=== PATIENT | male | born 1990 | race African-American/Black ===

== ENCOUNTER 2021-10-13 13:04 | Emergency (ER) | payer OTHER ==
[~2021-10-13] VITALS: Ht 190.5 cm; Wt 129.3 kg
[2021-10-13] MEDS ORDERED: NAPROSYN500 MG PO (15:44)
== END 2021-10-13 15:54 | disposition home or self-care (01) ==
LOC: FSED 13:13
DX: M79.605 Pain in left leg (principal); I80.3 Phlebitis and thrombophlebitis of lower extremities, unspecified; L97.329 Non-pressure chronic ulcer of left ankle with unspecified severity; Z86.718 Personal history of other venous thrombosis and embolism; F17.210 Nicotine dependence, cigarettes, uncomplicated
CPT/HCPCS: 99282